=== PATIENT | female | born 1970 | race Caucasian/White ===

== ENCOUNTER → 2019-01-13 | Outpatient (CLI) | payer OTHER ==
[~2019-01-13] MED LIST: ACETAMINOPHEN650 M5 PO; CIPRO500 MG PO; CIPROFLOXACIN500 M1 PO; COVARYX TABLET1 EACH PO; DEPO-PROVERA; DILAUDID 2 MG TA2 MG PO; ESTRACE2 MG; FLAGYL500 MG PO; HYDROCODON-ACE1 EAC7 PO; NORCO 5-325 TA1 EACH PO; NORTRIPTYLINE H50 M3; OMEPRAZOLE PO; ONDANSETRON HCL4 M2 PO; PAMELOR PO; PAXIL10 MG; PERCOCET 10-321 EACH PO; PERCOCET 5-3251 EACH PO; PRILOSEC20 MG PO; PRISTIQ50 MG PO; REGLAN 5 MG TAB5 M1 PO; XANAX 0.25 MG0.25 MG PO; XANAX 1 MG TABLE1 MG PO; ZOFRAN ODT4 MG PO; ZOFRAN4 MG PO; norethindrone PO
== END ==
LOC: M.RAD 13:20
DX: Z12.31 Encounter for screening mammogram for malignant neoplasm of breast (principal)

== ENCOUNTER → 2019-07-07 | Outpatient (CLI) | payer OTHER ==
[~2019-07-07] MED LIST changes: +ARIPIPRAZOLE OD15 MG PO; +DESYREL150 MG PO; +TOPAMAX100 MG PO; +VENLAFAXINE HC150 M1 PO; +VOLTAREN100 GM PO; +WELLBUTRIN XL300 MG PO
--- NOTE | 2019-07-07 13:13 | 2DMMODE ---
[place] [address] 2 D/M-MODE ECHOCARDIOGRAM Name: CHAPINCITO PETERSON Room: [facility]#: [id number] Admission: 07/07/19 Attend Phys: Nash Wright Discharge: Date of : 72 Date of Service: 07/07/19 1312 Report #: [id number] THIS REPORT FOR: cc: Nash Wright,Glen Atwood MD [facility] ~ APPROVED REPORT Study performed: 07/07/2019 11:35:21 EXAM: Comprehensive 2D, Doppler, and color-flow Echocardiogram Patient Location: Out-Patient BSA: 2.62 HR: 78 bpm BP: 120/80 mmHg Other Information Study Quality: Good Indications Peripheral Edema 2D Dimensions IVSd: 11.88 (7-11mm) LVOT Diam: 19.98 (18-24mm) LVDd: 37.68 mm PWd: 10.92 (7-11mm) Ascending Ao: 32.28 (22-36mm) LVDs: 27.59 (25-40mm) Aortic Root: 25.92 mm Volumes Left Atrial Volume (Systole) LA ESV Index: 10.60 mL/m2 Aortic Valve AoV Peak Meliton.: 1.30 m/s AO Peak Gr.: 6.78 mmHg LVOT Max P.90 mmHg AO Mean Gr.: 4.17 mmHg LVOT Mean P.00 mmHg LVOT Max V: 0.99 m/s AO V2 VTI: 25.71 cm LVOT Mean V: 0.65 m/s MIRELA (VTI): 2.65 cm2 LVOT V1 VTI: 21.77 cm Mitral Valve E/A Ratio: 0.97 [place] [address] 2 D/M-MODE ECHOCARDIOGRAM Name: NICHOLASGILES [id number] Admission: 07/07/19 Attend Phys: Nash Wright Discharge: Date of : 72 Date of Service: 07/07/19 1312 Report #: [id number] MV Decel. Time: 219.63 ms MV E Max Meliton.: 0.89 m/s MV PHT: 63.69 ms MVA (PHT): 3.45 cm2 TDI E/Lateral E': 9.89 E/Medial E': 6.85 Medial E' Meliton.: 0.13 m/s Lateral E' Meliton.: 0.09 m/s Pulmonary Valve PV Peak Meliton.: 1.05 m/s PV Peak Gr.: 4.45 mmHg Tricuspid Valve RAP Estimate: 5.00 mmHg TR Peak Gr.: 18.83 mmHg RVSP: 23.83 mmHg PA Pressure: 23.83 mmHg Left Ventricle The left ventricle is normal size. There is normal LV segmental wall motion. There is normal left ventricular wall thickness. Left ventricular systolic function is normal. LVEF is 55%. Grade I - abnormal relaxation pattern. Right Ventricle The right ventricle is normal size. The right ventricular systolic function is normal. Atria The left atrium size is normal. The right atrium size is normal. Aortic Valve The aortic valve is normal in structure. No aortic regurgitation is present. There is no aortic valvular stenosis. Mitral Valve The mitral valve is normal in structure. There is no mitral valve regurgitation noted. No evidence of mitral valve stenosis. Tricuspid Valve The tricuspid valve is normal in structure. Mild tricuspid regurgitation. No pulmonary hypertension. Pulmonic Valve The pulmonary valve is normal in structure. [place] [address] 2 D/M-MODE ECHOCARDIOGRAM Name: CHAPINCITO PETERSON [id number] Admission: 07/07/19 Attend Phys: Nash Wright Discharge: Date of : 72 Date of Service: 07/07/19 1312 Report #: [id number] valvular regurgitation. Great Vessels The aortic root is normal in size. IVC is normal in size and collapses >50% with inspiration. Pericardium There is no pericardial effusion. <Conclusion> The left ventricle is normal size. There is normal left ventricular wall thickness. Left ventricular systolic function is normal. LVEF is 55%. Grade I - abnormal relaxation pattern. IVC is normal in size and collapses >50% with inspiration. Mild tricuspid regurgitation. No pulmonary hypertension. <ELECTRONICALLY SIGNED> By: Glen Bhatti MD, FACC 07/07/19 1312 131 131 Glen Bhatti MD, FACC /INF
== END ==
LOC: M.CRD 11:30
DX: I07.1 Rheumatic tricuspid insufficiency (principal); R60.0 Localized edema

== ENCOUNTER 2019-07-09 20:41 | Emergency (ER) | payer OTHER ==
[~2019-07-09] VITALS: Ht 177.8 cm; Wt 156.5 kg
[~2019-07-09 20:41] MED LIST changes: -ARIPIPRAZOLE OD15 MG PO; -DESYREL150 MG PO; -TOPAMAX100 MG PO; -VENLAFAXINE HC150 M1 PO; -VOLTAREN100 GM PO; -WELLBUTRIN XL300 MG PO
[2019-07-09] MEDS ORDERED: VOLTAREN100 GM PO (20:52)
[2019-07-09] MEDS ORDERED: VENLAFAXINE HC150 M1 PO (20:53)
[2019-07-09] MEDS ORDERED: DESYREL150 MG PO (20:53)
[2019-07-09] MEDS ORDERED: TOPAMAX100 MG PO (20:54)
[2019-07-09] MEDS ORDERED: WELLBUTRIN XL300 MG PO (20:54)
[2019-07-09] MEDS ORDERED: ARIPIPRAZOLE OD15 MG PO (20:55)
[2019-07-09 21:24] LABS: ABSOLUTE EOSINOPHILS 0.3 thou/uL (0.0-0.7); ABSOLUTE LYMPHOCYTES 4.5 thou/uL (0.8-5.3); ABSOLUTE MONOCYTES 0.8 thou/uL (0.0-1.2); ABSOLUTE NEUTROPHILS 5.4 thou/uL (1.6-8.1); BASOPHILS 0.4 %; EOSINOPHILS 2.6 %; HEMATOCRIT 39.9 % (37.0-47.0); HEMOGLOBIN 13.1 gm/dL (12.0-15.0); LYMPHOCYTES 40.7 %; MCH 27.4 pg (26.0-34.0); MCHC 32.9 g/dL (28.0-37.0); MCV 83.2 fL (80.0-100.0); MONOCYTES 7.2 %; MPV 7.8 fl. (7.2-11.1); NUCLEATED RBCS 0 /100WBC; PLATELET COUNT* 416 thou/uL (150-400); POLYS 49.1 %; RDW-CV 14.6 % (10.5-14.5)
[2019-07-09 21:36] LABS: CALCIUM 8.4 mg/dL (8.5-10.1); CREATININE 1.2 mg/dL (0.6-1.3); POTASSIUM 3.7 mmol/L (3.5-5.1)
[2019-07-09 21:46] LABS: PROTIME 9.9 Seconds (9.20-11.50)
[2019-07-09 21:49] LABS: ALBUMIN 3.3 g/dL (3.4-5.0); MAGNESIUM 2.2 mg/dL (1.8-2.4); TOTAL BILIRUBIN 0.2 mg/dL (<0.1-1.0); TOTAL PROTEIN 7.5 g/dL (6.4-8.2)
[2019-07-10 02:54] LABS: URINE BILIRUBIN NEGATIVE (Negative); URINE BLOOD NEGATIVE (Negative); URINE CLARITY CLEAR; URINE COLOR YELLOW; URINE GLUCOSE-RANDOM NEGATIVE (Negative); URINE KETONES NEGATIVE (Negative); URINE LEUKOCYTES-REFLEX NEGATIVE (Negative); URINE NITRITE-REFLEX NEGATIVE (Negative); URINE PROTEIN NEGATIVE (Negative); URINE UROBILINOGEN 0.2 E.U./dl (0.2-1.0)
[2019-07-10 03:39] VITALS: BP 128/70
--- NOTE | 2019-07-10 10:54 | EKG ---
[place] [address] ELECTROCARDIOGRAM REPORT Name: CHAPINCITO PETERSON Room: [facility]#: [id number] Admission: 07/09/19 Attend Phys: Discharge: 07/10/19 Date of : 72 Date of Service: 07/09/192042 Report #: [id number] THIS REPORT FOR: //name// [facility] ED Test Date: 2019-07-09 Test Time: 20:43:38 Pat Name: CHAPINCITO PETERSON Department: Room: Gender: F Information Systems Operator: : 1970 Requested By: Nya Osullivan Order Number: [id number] MD: Sesar Wilson Measurements Intervals [place] Rate: 86 P: 46 CA: 167 QRS: 11 QRSD: 89 T: 56 QT: 368 QTc: 440 Interpretive Statements Sinus rhythm Abnormal R-wave progression, early transition Compared to ECG 07/15/2011 03:50:08 No significant changes Electronically Signed On 07-10-2019 10:52:35 CDT by Sesar Wilson [email or web address] <ELECTRONICALLY SIGNED> By: Sesar Wilson MD, [facility] 07/10/19 1052 42 42 Sesar Wilsno MD, [facility] /EPI
== END 2019-07-10 03:41 | disposition home or self-care (01) ==
LOC: M.ERS 20:41
PROVIDERS: Emergency Medicine
DX: R07.89 Other chest pain (principal); G43.909 Migraine, unspecified, not intractable, without status migrainosus; Z90.49 Acquired absence of other specified parts of digestive tract; Z90.710 Acquired absence of both cervix and uterus; Z88.1 Allergy status to other antibiotic agents; Z88.2 Allergy status to sulfonamides

== ENCOUNTER → 2020-10-11 | Outpatient (CLI) | payer OTHER ==
[~2020-10-11] MED LIST changes: +ARIPIPRAZOLE OD15 MG PO; +DESYREL150 MG PO; +TOPAMAX100 MG PO; +VENLAFAXINE HC150 M1 PO; +VOLTAREN100 GM PO; +WELLBUTRIN XL300 MG PO
--- NOTE | 2020-10-14 08:08 | PATH ---
[place] [address] PATHOLOGY RPT PROCEDURE Name: CHAPINCITO SILVERIO JO [facility] [id number] Admission: 10/11/20 Date of : 72 Discharge: Report #: [id number] Path Case #: [id number] [facility] Accession Number: [id number] . 01 Material submitted: . breast - RIGHT BREAST SUBAREOLAR DUCT MASS. Modifiers: right . 01 Clinical history: . 1.03 X 1.03 X 0.69 CM SUBAREOLAR DUCT MASS . . 02 Diagnosis: Right breast subareolar duct mass: - Benign breast tissue with usual ductal epithelial hyperplasia and dense fibrosis, negative for atypia. See comment. (NOEL:ela; 10/12/2020) S 10/12/2020 1524 Local . 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 Reviewed with Dr. Farzad Dinero on 10/12/2020, who agrees with the diagnosis. (NOEL:ela; 10/12/2020) . 02 Electronically signed: . Duglas Bowles MD, Pathologist NPI- [id number] . 01 Gross description: . The specimen is received in formalin, labeled "Chapincito Silverio and right breast subareolar duct mass". It consists of 4 bullard-yellow core soft tissue fragments ranging from 0.3-1.0 cm long and averaging 0.2 cm in diameter. The specimen is entirely submitted between sponges in A1. Time removed from patient: 1454 on 10/11/20 Time in formalin: 1459 on 10/11/20 Time removed from formalin: 2340 on 10/11/20 Total time in formalin: 8 hours 41 minutes (MRF; 10/11/2020) MFE/MFE 10/11/2020 2120 Local . 02 Pathologist provided ICD-10: N62, N60.31 . 02 CPT . 027973 Specimen Comment: A courtesy copy of this report has been sent to [phone], [phone] Specimen Comment: [id number] [place] [address] PATHOLOGY RPT PROCEDURE Name: CHAPINCITO SILVERIO Room: [facility].#: [id number] Admission: 10/11/20 Date of : 72 Discharge: Report #: [id number] Path Case #: [id number] Specimen Comment: Report sent to ,DR GARCIA / DR FERNANDES Specimen Comment: Report sent to Performed at: [address], [place] [id number] MD Delroy Aguero MD Phone: [phone] Performed at: 02 [facility] [address], [place], [place] [id number] MD Duglas Bowles MD Phone: [phone]
== END | disposition home or self-care (01) ==
LOC: M.ULTRA 14:00
PROVIDERS: ATTEND Specialist
DX: N62 Hypertrophy of breast (principal); N60.31 Fibrosclerosis of right breast; R92.1 Mammographic calcification found on diagnostic imaging of breast; Z98.890 Other specified postprocedural states; Z79.899 Other long term (current) drug therapy; Z88.8 Allergy status to other drugs, medicaments and biological substances; Z88.2 Allergy status to sulfonamides

== ENCOUNTER → 2021-02-15 | Outpatient (CLI) | payer OTHER | LOC: M.ULTRA 09:00 | PROVIDERS: ATTEND Specialist | DX: N63.10 Unspecified lump in the right breast, unspecified quadrant (principal); Q83.9 Congenital malformation of breast, unspecified; N64.4 Mastodynia ==